=== PATIENT | female | born 1985 | race Caucasian/White ===

== ENCOUNTER 2018-10-16 14:41 | Emergency (ER) | payer MEDICAID ==
--- NOTE | 2018-10-16 15:31 | ER Document Report ---
ED Medical Screen (RME) - General Chief Complaint: Flank Pain Stated Complaint: LEFT SIDE PAIN Time Seen by Provider: 10/16/18 15:28 Primary Care Provider: NERY SO MD [Primary Care Provider] - Follow up as needed Mode of Arrival: Ambulatory Information source: Patient Notes: pt presents with c/o left side flank and LLQ pain for 3 days. started with pain with void but no pain with void now. denies v/f reports diarrhea and dry heaves. denies hx of kidney stone. I have greeted and performed a rapid initial assessment of this patient. A comprehensive ED assessment and evaluation of the patient, analysis of test results and completion of the medical decision making process will be conducted by additional ED providers. TRAVEL OUTSIDE OF THE [place] IN LAST 30 DAYS: No - Related Data Allergies/Adverse Reactions: No Known Allergies Allergy (Verified 10/16/18 15:04) Past Medical History Neurological Medical History: Denies: Hx Seizures Psychiatric Medical History: Reports: Hx Bipolar Disorder Past Surgical History: Denies: Hx Hysterectomy - Immunizations Hx Diphtheria, Pertussis, Tetanus Vaccination: Yes Physical Exam - Vital signs Vitals: Temp Pulse Resp BP Pulse Ox 98.1 F 98 18 127/71 H 98 10/16/18 15:30 10/16/18 15:30 10/16/18 15:30 10/16/18 15:30 10/16/18 15:30 Course - Vital Signs Vital signs: Temp Pulse Resp BP Pulse Ox 98.1 F 98 18 127/71 H 98 10/16/18 15:30 10/16/18 15:30 10/16/18 15:30 10/16/18 15:30 10/16/18 15:30 - Laboratory Result Diagrams: 10/16/18 18:15 10/16/18 18:15 Laboratory results interpreted by me: 10/16/18 18:15 WBC 14.7 H Seg Neutrophils % 80.0 H Absolute Neutrophils 11.7 H Doctor's Discharge - Discharge Referrals: NERY SO MD [Primary Care Provider] - Follow up as needed
[2018-10-16 18:59] LABS: ABSOLUTE EOSINOPHILS # (AUTO) 0.1 10^3/uL (0.0-0.6); ABSOLUTE LYMPHOCYTES (AUTO) 1.9 10^3/uL (0.5-4.7); ABSOLUTE MONOCYTES (AUTO) 0.8 10^3/uL (0.1-1.4); ABSOLUTE NEUT (AUTO) 11.7 10^3/uL (1.7-8.2); BASOPHILS % (AUTO) 0.3 % (0-2); EOSINOPHILS % (AUTO) 0.9 % (0-6); HEMATOCRIT 39.3 % (36.0-47.0); HEMOGLOBIN 13.5 g/dL (12.0-15.5); LYMPHOCYTES % (AUTO) 13.1 % (13-45); MEAN CORPUSCULAR HGB CONC 34.4 g/dL (32.0-36.0); MEAN CORPUSCULAR VOLUME 90 fl (80-97); MONOCYTES % (AUTO) 5.7 % (3-13); PLATELET COUNT 290 10^3/uL (150-450); RED BLOOD COUNT 4.36 10^6/uL (3.72-5.28); RED CELL DISTRIBUTION WIDTH 13.7 % (11.5-14.0); TOTAL CELLS COUNTED % (AUTO) 100 %; WHITE BLOOD COUNT 14.7 10^3/uL (4.0-10.5)
[2018-10-16 19:07] LABS: APPEARANCE,URINE SLIGHTLY-CLOUDY; BILIRUBIN,URINE NEGATIVE (NEGATIVE); COLOR,URINE YELLOW; GLUCOSE, URINE NEGATIVE (NEGATIVE); KETONES,URINE TRACE mg/dL (NEGATIVE); LEUKOCYTE ESTERASE,URINE LARGE (NEGATIVE); NITRITE,URINE NEGATIVE (NEGATIVE); PROTEIN,URINE 30 mg/dL (NEGATIVE); URINE SPECIFIC GRAVITY 1.015
[2018-10-16 19:11] LABS: ALANINE AMINOTRANSFERASE 28 U/L (9-52); ALBUMIN 3.8 g/dL (3.5-5.0); ALKALINE PHOSPHATASE 92 U/L (38-126); ANION GAP 13 (5-19); ASPARTATE AMINO TRANSFERASE 24 U/L (14-36); BILIRUBIN,DIRECT 0.2 mg/dL (0.0-0.4); BILIRUBIN,TOTAL 0.5 mg/dL (0.2-1.3); BLOOD UREA NITROGEN 10 mg/dL (7-20); CALCIUM 9.2 mg/dL (8.4-10.2); CARBON DIOXIDE 25 mmol/L (22-30); CHLORIDE 98 mmol/L (98-107); GLUCOSE 76 mg/dL (75-110); POTASSIUM 3.6 mmol/L (3.6-5.0); SODIUM 135.5 mmol/L (137-145)
--- NOTE | 2018-10-16 19:48 | ER Document Report ---
Addendum entered and electronically signed by MARIAH FORTE PA-C 10/16/18 20:23: Course - Re-evaluation Re-evalutation: 10/16/18 20:22 Nurse reported that discharge vital signs she had a temperature of 101. I am giving a dose of Tylenol and will wait to reassess to ensure that she does respond. If she does not I will reassess and may have to consider admission. - Vital Signs Vital signs: Temp Pulse Resp BP Pulse Ox 101.3 F H 102 H 18 133/74 H 98 10/16/18 20:17 10/16/18 20:17 10/16/18 20:17 10/16/18 20:17 10/16/18 20:17 - Laboratory Result Diagrams: 10/16/18 18:15 10/16/18 18:15 Laboratory results interpreted by me: 10/16/18 10/16/18 10/16/18 18:15 18:15 18:35 WBC 14.7 H Seg Neutrophils % 80.0 H Absolute Neutrophils 11.7 H Sodium 135.5 L Urine Protein 30 H Urine Ketones TRACE H Urine Urobilinogen 4.0 H Ur Leukocyte Esterase LARGE H Original Note: ED General - General Chief Complaint: Flank Pain Stated Complaint: LEFT SIDE PAIN Time Seen by Provider: 10/16/18 15:28 Primary Care Provider: NERY SO MD [NO LOCAL MD] - Follow up as needed Mode of Arrival: Ambulatory Notes: 33-year-old female presents for fever and left flank pain for the last couple of days. She states that she is freezing and shaking, complains of kidney pain, complains of dizziness, complains of lightheadedness, complains of left lower quadrant abdominal pain. She complains of fevers. She states she is having neck pain. Denies chest pain or shortness of breath. She denies nausea or vomiting. She is complaining of dysuria and urinary frequency. TRAVEL OUTSIDE OF THE [place] IN LAST 30 DAYS: No - Related Data Allergies/Adverse Reactions: No Known Allergies Allergy (Verified 10/16/18 15:04) Past Medical History - General Information source: Patient - Social History Smoking Status: Unknown if Ever Smoked Family History: Reviewed & Not Pertinent Neurological Medical History: Denies: Hx Seizures Psychiatric Medical History: Reports: Hx Bipolar Disorder Past Surgical History: Denies: Hx Hysterectomy - Immunizations Hx Diphtheria, Pertussis, Tetanus Vaccination: Yes Review of Systems - Review of Systems Constitutional: See HPI EENT: No symptoms reported Cardiovascular: See HPI Respiratory: See HPI Gastrointestinal: See HPI Genitourinary: See HPI Female Genitourinary: See HPI Musculoskeletal: No symptoms reported Skin: No symptoms reported Hematologic/Lymphatic: No symptoms reported Neurological/Psychological: No symptoms reported Physical Exam - Vital signs Vitals: Temp Pulse Resp BP Pulse Ox 98.1 F 98 18 127/71 H 98 10/16/18 15:30 10/16/18 15:30 10/16/18 15:30 10/16/18 15:30 10/16/18 15:30 - Notes Notes: PHYSICAL EXAMINATION: Reviewed vital signs and charting by RN GENERAL: Alert, interacts well. Mild distress. HEAD: Normocephalic, atraumatic. EYES: Pupils equal, round. Extraocular movements intact. NECK: Full range of motion. Supple. Trachea midline. No meningismus LUNGS: Clear to auscultation bilaterally, no wheezes, rales, or rhonchi. No respiratory distress. HEART: Regular rate and rhythm. No murmur ABDOMEN: soft, left lower quadrant tenderness to palpation. Non-distended. Bowel sounds present in all 4 quadrants. no McBurney's point tenderness, no Agustin sign. EXTREMITIES: Moves all 4 extremities spontaneously. No edema, No cyanosis. BACK: Left CVAT PSYCH: Normal affect, normal mood. SKIN: Warm, dry, normal turgor. No rashes or lesions noted. Course - Re-evaluation Re-evalutation: 10/16/18 19:46 Overall in mild distress. Symptoms most consistent with pyelonephritis. She is complaining of chills and fever although her recorded temperature is 98.1 she does have a mild leukocytosis of 14.7. She has left CVAT. Plan is to give her ceftriaxone IM 1 time here and a 5-day course of ciprofloxacin 500 mg twice daily for 5 days. I discussed this case with Dr. Li. Patient is safe and stable for discharge. - Vital Signs Vital signs: Temp Pulse Resp BP Pulse Ox 98.1 F 98 18 127/71 H 98 10/16/18 15:30 10/16/18 15:30 10/16/18 15:30 10/16/18 15:30 10/16/18 15:30 - Laboratory Result Diagrams: 10/16/18 18:15 10/16/18 18:15 Laboratory results interpreted by me: 10/16/18 10/16/18 10/16/18 18:15 18:15 18:35 WBC 14.7 H Seg Neutrophils % 80.0 H Absolute Neutrophils 11.7 H Sodium 135.5 L Urine Protein 30 H Urine Ketones TRACE H Urine Urobilinogen 4.0 H Ur Leukocyte Esterase LARGE H Discharge - Discharge Clinical Impression: Pyelonephritis Condition: Good Disposition: HOME, SELF-CARE Instructions: Pyelonephritis ([facility]), Acetaminophen, Trimethoprim-Sulfa ([facility]) Additional Instructions: You have been diagnosed with a condition called pyelonephritis which is an infection involving your kidneys and bladder. You have been given a dose of antibiotics here in the emergency department to help begin to treat this infection. Your also being sent home on antibiotics. Please start taking these later on today when you fill the prescription. Complete the course even if you feel better. Please return if you have persistent vomiting, pass out, have worsening pain, become unable to tolerate fluids, or have any other symptoms that are concerning to you. Please follow-up with your primary care physician in the next 24-48 hours. . Prescriptions: Ciprofloxacin HCl [Cipro 500 mg Tablet] 500 mg PO BID #10 tablet Sulfamethoxazole/Trimethoprim [Bactrim Ds Tablet] 1 each PO BID 7 Days #14 tablet Referrals: NERY SO MD [NO LOCAL MD] - Follow up as needed
[2018-10-16] MEDS ORDERED: CEFTRIAXONE INJ 1000 MG VIAL IM ONE (19:49)
[2018-10-16] MEDS ORDERED: SULFAMETHOXAZOLE/TRIMETHOPRIM 800-160 MG TABLET PO ONE (20:06)
[2018-10-16] MEDS ORDERED: ACETAMINOPHEN 325 MG TABLET PO ONE (20:20)
[2018-10-16 20:21] VITALS: BP 133/74
== END 2018-10-16 21:48 | disposition home or self-care (01) ==
LOC: ER 14:41
DX: N12 Tubulo-interstitial nephritis, not specified as acute or chronic (principal); N23 Unspecified renal colic; R42 Dizziness and giddiness; R50.9 Fever, unspecified; M54.2 Cervicalgia; R30.0 Dysuria; R35.0 Frequency of micturition
CPT/HCPCS: 99284; 96372; 36415; 84703; 85025; 80053; 81001; J0696